=== PATIENT | female | born 1980 | race African-American/Black ===

== ENCOUNTER 2018-06-25 21:43 | Emergency (ER) | payer OTHER ==
[~2018-06-25] VITALS: Ht 162.6 cm; Wt 107.3 kg
[2018-06-25 23:32] VITALS: BP 127/76
== END 2018-06-26 00:41 | disposition home or self-care (01) ==
LOC: ER 21:43
DX: L02.31 Cutaneous abscess of buttock (principal); Z88.0 Allergy status to penicillin
CPT/HCPCS: 99281; 99283